=== PATIENT | female | born 1965 | race American Indian/Alaskan Native ===

== ENCOUNTER 2018-05-16 12:17 | Outpatient (CLI) | payer OTHER | END 2018-05-16 12:18 | disposition home or self-care (01) | LOC: LABHHL 12:17 | PROVIDERS: ATTEND Surgery | DX: N63.20 Unspecified lump in the left breast, unspecified quadrant (principal); E05.90 Thyrotoxicosis, unspecified without thyrotoxic crisis or storm; K21.9 Gastro-esophageal reflux disease without esophagitis; I10 Essential (primary) hypertension | CPT/HCPCS: 88112; 88305 ==

== ENCOUNTER 2020-12-06 15:03 | Outpatient (CLI) | payer BC, OTHER ==
--- NOTE | 2020-12-06 15:52 | Ultrasound Report ---
ULTRASOUND BREAST RIGHT LIMITED, 12/06/2020 CLINICAL INFORMATION / INDICATION: ABNORMAL MAMMOGRAM. Patient presents as a callback from screening mammogram for further evaluation of an oval mass in the right breast. TECHNIQUE: Targeted ultrasound evaluation was performed of the area of interest. COMPARISON: Prior mammogram 05/20/2020 FINDINGS: Corresponding with the nodular density described on recent mammogram, there is a 7 mm benign simple c yst seen in the right breast 10:00 position located 9 cm from the nipple. Incidental note is made of an additional 5 mm complicated cyst in the 12:00 position located 5 cm from the nipple. No suspicious solid lesion identified. IMPRESSION: 1. A benign cyst accounts for the mammographic finding. No suspicious sonographic abnormality identif ied. Follow up recommendation: Back to schedule. BI-RADS Category 2: Benign. A normal or "negative" report should not preclude biopsy or follow-up of a clinically suspicious find ing. Signer Name: America Crooks MD Signed: 12/06/2020 3:48 PM Workstation Name: [email or web address]
== END 2020-12-06 15:04 | disposition home or self-care (01) ==
LOC: SPVWC 15:03
PROVIDERS: ATTEND Surgery
DX: N60.01 Solitary cyst of right breast (principal)

== ENCOUNTER 2021-05-31 09:44 | Outpatient (CLI) | payer BC, OTHER ==
--- NOTE | 2021-05-31 14:46 | Mammography Report ---
DIGITAL SCREENING MAMMOGRAM WITH TOMOSYNTHESIS WITH CAD, 05/31/2021 CLINICAL INFORMATION / INDICATION: Screening TECHNIQUE: Digital bilateral 2D and 3D mammography with tomosynthesis was obtained in the craniocaud al and mediolateral oblique projections. Computer-Aided Detection (CAD) analysis was used for interp retation of this study. COMPARISON: 05/20/2020 FINDINGS: Breast Density: The breasts are heterogeneously dense, which may obscure small masses. No dominant mass, suspicious calcifications, or architectural distortion in either breast. Left surgical changes are again noted. IMPRESSION: No mammographic evidence of malignancy. Follow up recommendation: Routine yearly BI-RADS Category 1: Negative. A "normal" or negative report should not discourage follow up or biopsy of a clinically significant f inding. A written summary of these findings will be mailed to the patient. The patient will be entered into a mammography reporting system which will generate a reminder letter for the patient's next appointmen t at the appropriate interval. The [employer] recommends yearly mammograms starting at age 40 and continuing as l eugene as a woman is in good health. Breast MRI is recommended for women with an approximate 20-25% or greater lifetime risk of breast cancer, including women with a strong family history of breast or ova rodolfo cancer or who have been treated for Hodgkin's disease. Signer Name: Gerson Zelaya MD Signed: 05/31/2021 2:41 PM Workstation Name: [id number]
== END 2021-05-31 09:45 | disposition home or self-care (01) ==
LOC: SPVWC 09:44
PROVIDERS: ATTEND Surgery
DX: Z12.31 Encounter for screening mammogram for malignant neoplasm of breast (principal); N64.89 Other specified disorders of breast
CPT/HCPCS: 77063; 77067